=== PATIENT | male | born 1975 ===

== ENCOUNTER → 2018-12-13 | Outpatient (CLI) | payer OTHER ==
--- NOTE | 2018-12-13 14:02 | KCIC ---
MR of the left shoulder HISTORY: Left shoulder pain. Injury October 2018. TECHNIQUE: Routine multiplanar sequences are obtained. FINDINGS: The acromioclavicular joint is intact. No evidence of rotator cuff tear. Borderline signal within the rotator cuff suggesting mild tendinosis. No significant subdeltoid bursal fluid. No significant glenohumeral joint effusion. No acute articular cartilage defect. Mild signal within the superior labrum, with slight lateral extension suspicious for a small superior labral tear. Coronal series 6, image 10. Biceps tendon intact. No bone destruction or acute fracture. No acute soft tissue abnormality. IMPRESSION: 1. Probable small tear of the superior labrum. 2. No evidence of rotator cuff tear. Electronically signed by: Pablo Adams MD (12/13/2018 1:59 PM) [id number]
== END | disposition home or self-care (01) ==
LOC: KCIC MRI 09:39
PROVIDERS: ATTEND Orthopaedic Surgery
DX: M25.512 Pain in left shoulder (principal)
CPT/HCPCS: 73221